=== PATIENT | female | born 1930 | race Caucasian/White ===

== ENCOUNTER 2017-03-02 16:27 | Inpatient (IN) | payer MEDICARE, BC ==
[~2017-03-02] VITALS: Ht 160 cm; Wt 68.9 kg
[2017-03-02] MEDS ORDERED: IV NORMAL SALINE 250 ML IV ONE (17:00)
[2017-03-02] MEDS ORDERED: MORPHINE SULFATE 2 MG/1 ML DISP.SYRIN IV ONE (18:30)
[2017-03-02] MEDS ORDERED: ONDANSETRON IV *ER 4 MG/2 ML VIAL IV ONE (18:30)
[2017-03-02] MEDS ORDERED: ONDANSETRON 4 MG/2 ML VIAL ONE (18:42)
[2017-03-02 18:48] LABS: BASOPHILS % (AUTO) 0.4 % (0.0-2.0); EOSINOPHILS # (AUTO) 0.1 K/uL (0.0-0.7); EOSINOPHILS % (AUTO) 0.6 % (0.0-7.0); HEMATOCRIT 40.5 % (37-47); HEMOGLOBIN 13.5 G/DL (12.0-16.0); LYMPHOCYTES # (AUTO) 1.5 K/UL (0.8-4.8); LYMPHOCYTES % (AUTO) 12.8 % (20.5-51.5); MEAN CORPUSCULAR HEMOGLOBIN 29.6 UUG (27.0-31.0); MEAN CORPUSCULAR HGB CONC 33 g/dL (32.0-37.0); MONOCYTES % (AUTO) 8.3 % (0.0-11.0); NEUTROPHILS # (AUTO) 9.5 K/UL (1.8-8.9); NEUTROPHILS % (AUTO) 77.9 % (38.5-71.5); PLATELET COUNT (AUTO) 248 K/UL (150-450); RED BLOOD CELL COUNT(AUTO) 4.55 MIL/UL (4.2-5.4); WHITE BLOOD COUNT (AUTO) 12.1 K/UL (4.0-11.2)
[2017-03-02 18:57] LABS: CARBON DIOXIDE 30 mmol/L (21-32); CHLORIDE 103 mmol/L (98-107); CREATININE 0.8 mg/dL (0.6-1.3); GLUCOSE 116 mg/dL (74-106); POTASSIUM 3.9 mmol/L (3.5-5.1); UREA NITROGEN, BLOOD 16 mg/dL (7-18)
[2017-03-02 19:07] LABS: ALANINE AMINOTRANSFERASE 25 U/L (14-59); ALKALINE PHOSPHATASE 58 U/L (50-136); ASPARTATE AMINOTRANSFERASE 20 U/L (15-37); BILIRUBIN,TOTAL 0.4 mg/dL (0.2-1.0)
[2017-03-02] MEDS ORDERED: HYDROCODONE/APAP 10-325 MG TABLET PO PRN (19:15)
[2017-03-02] MEDS ORDERED: ACETAMINOPHEN 325 MG TABLET PO PRN (19:15)
[2017-03-02] MEDS ORDERED: Z GUARD REMEDY PASTE 57 GM TUBE TOP PRN (19:15)
[2017-03-02] MEDS ORDERED: MAGNESIUM HYDROXIDE 30 ML LIQUID UDC PO PRN (19:15)
[2017-03-02] MEDS ORDERED: MORPHINE SULFATE 2 MG/1 ML DISP.SYRIN IV PRN (19:15)
[2017-03-02] MEDS ORDERED: HYDROCODONE/APAP 5-325MG TABLET PO PRN (19:15)
[2017-03-02] MEDS ORDERED: ONDANSETRON 4 MG/2 ML VIAL IV PRN (19:15)
--- NOTE | 2017-03-02 19:35 | NUR ---
Call placed to on-call ORTHOPEDIC, Dr. Garcia, who will be paged.
--- NOTE | 2017-03-02 19:40 | NUR ---
FABIENNE speaking with Dr. Tristan
--- NOTE | 2017-03-02 19:55 | NUR ---
Patient's family request to stay overnight in the hospital, they do not think they can manage care of the patient at home. ERMD notified.
--- NOTE | 2017-03-02 19:58 | NUR ---
MEDICALLY CLEARED BY DR DASILVA
[2017-03-02 19:59] LABS: *BILIRUBIN,URIN NEGATIVE (NEGATIVE); *BLOOD, URINE Trace-lysed (NEGATIVE); *CLARITY,URINE CLEAR (CLEAR); *COLOR,URINE YELLOW (YELLOW); *KETONES,URINE NEGATIVE (NEGATIVE); *PROTEIN,URINE NEGATIVE (NEGATIVE); *UROBILINOGEN,URINE 0.2 E.U./dl (NORMAL); LEUKOCYTE ESTERASE ,URINE TRACE (NEGATIVE); NITRITE, URINE NEGATIVE (NEGATIVE); PH,URINE 5.5 (5.0-8.0); UGLUCOSE NEGATIVE (NEGATIVE)
[2017-03-02 20:00] VITALS: BP 137/62
[2017-03-02 20:16] LABS: BACTERIA,URINE FEW /HPF (NONE SEEN); RBC,URINE 0-3 /HPF (0-3); SQUAMOUS EPITHELIAL CELL,UR MODERATE /HPF (NONE SEEN)
--- NOTE | 2017-03-02 20:48 | NUR ---
Pt. admitted to [facility], under care of Dr. Mccain Belongs List completed
[2017-03-02] MEDS ORDERED: ENOXAPARIN SODIUM 40 MG/0.4 ML DISP.SYRIN SQ SCH (21:00)
[2017-03-02] MEDS ORDERED: ALPRAZOLAM 0.25 MG TABLET PO SCH (22:15)
[2017-03-02] MEDS ORDERED: WARF3TAB6 PO (22:25)
[2017-03-02] MEDS ORDERED: LEVO25TA2 PO (22:25)
[2017-03-02] MEDS ORDERED: ALPR1TAB2 PO (22:25)
[2017-03-02] MEDS ORDERED: SIMV10TA6 PO (22:25)
[2017-03-02] MEDS ORDERED: ACET-2154 PO (22:25)
[2017-03-02] MEDS ORDERED: ALPRAZOLAM 0.5 MG TABLET ONE (22:34)
--- NOTE | 2017-03-03 01:15 | NUR ---
Admitted to [facility]. Left Humerus Fracture s/p mechanical fall. Left arm sling in use, still c/o left arm discomfort. Patient alert & oriented, no SOB denies chest pain. Vital signs are WNL. Initial assessment done. Bruise on right orbital, nasal bridge, & right lower leg wound noted (see pictures in chart). Cleansed wound w/ NS, & dressing applied. Seen & examined by Dr. Hurley, received orders & carried out. Patient stated she's taking Xanax pill routinely before bedtime. Needs provided. Fall precaution observed, assisted to the bathroom PRN. [facility]
[2017-03-03 04:00] VITALS: BP 137/49
[2017-03-03 06:25] LABS: BASOPHILS % (AUTO) 0.3 % (0.0-2.0); EOSINOPHILS # (AUTO) 0.1 K/uL (0.0-0.7); EOSINOPHILS % (AUTO) 0.7 % (0.0-7.0); HEMATOCRIT 37.8 % (37-47); HEMOGLOBIN 12.7 G/DL (12.0-16.0); LYMPHOCYTES # (AUTO) 1.9 K/UL (0.8-4.8); MEAN CORPUSCULAR HEMOGLOBIN 30.3 UUG (27.0-31.0); MEAN CORPUSCULAR HGB CONC 34 g/dL (32.0-37.0); MEAN CORPUSCULAR VOLUME 90.1 FL (81.0-99.0); MONOCYTES # (AUTO) 1.3 K/UL (0.1-1.30); MONOCYTES % (AUTO) 15.1 % (0.0-11.0); NEUTROPHILS # (AUTO) 5.6 K/UL (1.8-8.9); NEUTROPHILS % (AUTO) 61.9 % (38.5-71.5); PLATELET COUNT (AUTO) 259 K/UL (150-450); WHITE BLOOD COUNT (AUTO) 8.9 K/UL (4.0-11.2)
--- NOTE | 2017-03-03 06:30 | NUR ---
Fairly rested. Neuro check done- WNL, remains alert & oriented, denies headache/dizziness. Assisted to the bathroom, still c/o left arm pain but refused to take pain meds. Vital signs are WNL.
[2017-03-03 06:56] LABS: CARBON DIOXIDE 33 mmol/L (21-32); CHLORIDE 102 mmol/L (98-107); CHOLESTEROL 114 mg/dL (<200); CREATININE 0.7 mg/dL (0.6-1.3); GLUCOSE 98 mg/dL (74-106); HDL CHOLESTEROL 61 mg/dL (40-60); MAGNESIUM 2.1 mg/dL (1.8-2.4); PHOSPHOROUS 3.3 mg/dL (2.5-4.9); POTASSIUM 3.9 mmol/L (3.5-5.1); TRIGLYCERIDES 38 MG/DL (30-150); UREA NITROGEN, BLOOD 14 mg/dL (7-18)
[2017-03-03] MEDS ORDERED: PANTOPRAZOLE SODIUM 40 MG TABLET.DR PO SCH (07:00)
[2017-03-03] MEDS ORDERED: ALPRAZOLAM 0.5 MG TABLET PO SCH (07:14)
[2017-03-03 07:30] LABS: THYROID STIMULATING HORMONE < 0.007 mIU/mL (0.358-3.740)
--- NOTE | 2017-03-03 07:30 | NUR ---
RECIEVED ROUNDING REPORT FROM THE NIGT SHIFT IN THE PT ROOM. PT IS AWAKE, ALERT AND ORIENTEX3. LYING IN BED, AWAKE, ALERT AND ORIENTEDX3. FACE HAS SCATTERED BRUISE ON THE FACE FROM THE FALL. HAS A LEFT ARM SLING ON THE LEFT ARM SECONDARY TO FX OF THE HUMERUS. PT C/O PAIN LEVEL 6 BUT REFUSED TO TAKE SOME PAIN MEDICATION. VERY PLEASANT LADY AND VERY COOPERATIVE.
[2017-03-03 07:54] LABS: BAND % (MANUAL) 2 % (0-10); EOSINOPHILS % (MANUAL) 1 % (0-8); LYMPHOCYTES % (MANUAL) 18 % (20-40); MONOCYTES % (MANUAL) 10 % (2-10); NEUTROPHILS % (MANUAL) 69 % (42-75)
[2017-03-03] MEDS ORDERED: SENN-167 PO (10:21)
--- NOTE | 2017-03-03 10:30 | NUR ---
SEEN AND EXAMINED BY DR PELAYO WITH NEW ORDER FOR DISCHARGE. PT AMBULATED AROUND THE RIVAS WITH PT AND TOLERATED WELL.
--- NOTE | 2017-03-03 11:30 | NUR ---
PT'S DAUGHTER IN THE ROOM . DISCHARGE INSTRUCTION GIVEN WITH GOOD UNDERSTANDING. COPY OF RADIOLOGY DISC GIVEN TO THE PT.
[2017-03-03 11:42] VITALS: BP 141/63
--- NOTE | 2017-03-03 12:00 | NUR ---
PT ATE LUNCH BEFORE GOING HOME. INSTRUCTED TO FOLLOW UP WITH HER PCP AND TO SEE AN ORTHOPEDIC MD.
--- NOTE | 2017-03-03 12:30 | NUR ---
HEPLOCK ON THE RIGHT WRIST REMOVED.
--- NOTE | 2017-03-03 12:30 | NUR ---
DISCHARGE VIA W/C ACCOMPANIED BY HER DAUGHTER. CONDITION IS STABLE.
== END 2017-03-03 12:30 | disposition home or self-care (01) | DRG 563 ==
LOC: ER 16:30 → MED 20:42
DX: S42.252A Displaced fracture of greater tuberosity of left humerus, initial encounter for closed fracture (principal); S42.202A Unspecified fracture of upper end of left humerus, initial encounter for closed fracture; S42.212A Unspecified displaced fracture of surgical neck of left humerus, initial encounter for closed fracture; S02.2XXA Fracture of nasal bones, initial encounter for closed fracture; M19.90 Unspecified osteoarthritis, unspecified site; W01.0XXA Fall on same level from slipping, tripping and stumbling without subsequent striking against object, initial encounter; Z96.641 Presence of right artificial hip joint; Z96.651 Presence of right artificial knee joint; Z86.718 Personal history of other venous thrombosis and embolism; Y92.89 Other specified places as the place of occurrence of the external cause; Z79.01 Long term (current) use of anticoagulants
CPT/HCPCS: 36415; 70450; 70486; 71010; 73060; 73070; 73090; 83735; 84100; 84443; 85025; 85610; 86850; 86900; 86901; 93005; A4217; A4663; J1650; J2270; J2405; J7050